=== PATIENT | female | born 1945 | race Native Hawaiian/Other Pacific Islander ===

== ENCOUNTER 2018-11-15 07:10 | Day surgery (SDC) | payer OTHER ==
[2018-11-15 07:33] VITALS: O2SAT 100
[2018-11-15 07:37] VITALS: BMI 18.1
[2018-11-15] MEDS ORDERED: Lactated Ringer's 500 ML IV ONE ×2 (08:01)
[2018-11-15] MEDS ORDERED: Propofol 10 mg/ml Inj (20 ML) ONE (09:39)
--- NOTE | 2018-11-15 09:42 | CP.SDSHP ---
Same Day Surgery H & P - History Proposed Procedure: EGD Pre-Op Diagnosis: SEE NOTES - Previous Medical/Surgical History Misc: Other Pain: 4.Moderate Pain - Allergies Allergies: Allergies No Known Allergies Allergy (Verified 11/15/18 07:33) - Physical Exam General Appearance: N Vital Signs: Vital Signs 11/15/18 07:25 Temperature 97.8 F Pulse Rate 77 Respiratory 19 Rate Blood Pressure 134/88 O2 Sat by Pulse 100 Oximetry Mental Status: Alert & Oriented x3 Neuro: WNL Heart: WNL Lungs: WNL GI: Other - {Optional Preform as Required} Breast: WNL Abdomen: Other Rectal: Other Integument: WNL : WNL Ortho: WNL ENT: WNL - Impression Pt. Evaluated Today:Candidate for Anesthesia & Procedure: Yes - Date & Time Time: 09:42 Short Stay Discharge - Short Stay Discharge Admitting Diagnosis/Reason for Visit: DYSPHAGIA Disposition: HOME/ ROUTINE
[2018-11-15] MEDS ORDERED: Belladonna-Phenobarbital PO STA (10:02)
[2018-11-15 10:21] VITALS: TEMP 96.9
[2018-11-15 10:39] VITALS: BP 114/62; PULSE 79; RESP 18
== END 2018-11-15 10:59 | disposition home or self-care (01) ==
LOC: C.ENDO 07:10
PROVIDERS: ATTEND Specialist
DX: R13.14 Dysphagia, pharyngoesophageal phase (principal); K44.9 Diaphragmatic hernia without obstruction or gangrene; K25.9 Gastric ulcer, unspecified as acute or chronic, without hemorrhage or perforation
CPT/HCPCS: 43239; 88305; J2001; J2704; J7120

== ENCOUNTER 2018-11-19 06:05 | Day surgery (SDC) | payer OTHER ==
[2018-11-19 07:06] VITALS: O2SAT 100
--- NOTE | 2018-11-19 08:53 | CP.SDSHP ---
Same Day Surgery H & P - History Proposed Procedure: COLONSCOPY Pre-Op Diagnosis: SEE NOTES - Previous Medical/Surgical History Misc: Other Pain: 2.Mild Pain - Allergies Allergies: Allergies No Known Allergies Allergy (Verified 11/19/18 06:56) - Physical Exam General Appearance: N Vital Signs: Vital Signs 11/19/18 06:57 Temperature 98.4 F Pulse Rate 58 L Respiratory 19 Rate Blood Pressure 98/57 L O2 Sat by Pulse 100 Oximetry Mental Status: Alert & Oriented x3 Neuro: WNL Heart: WNL Lungs: WNL GI: Other - {Optional Preform as Required} Breast: WNL Abdomen: Other Rectal: Other Integument: WNL : WNL Ortho: WNL ENT: WNL - Impression Pt. Evaluated Today:Candidate for Anesthesia & Procedure: Yes - Date & Time Time: 08:53 Short Stay Discharge - Short Stay Discharge Admitting Diagnosis/Reason for Visit: ENCOUNTER FOR SCREENING FOR MALIGNANT NEOPLASM OF Disposition: HOME/ ROUTINE
[2018-11-19] MEDS ORDERED: Belladonna-Phenobarbital PO ONE (09:00)
[2018-11-19] MEDS ORDERED: Propofol 10 mg/ml Inj (20 ML) ONE (09:08)
[2018-11-19 09:26] VITALS: TEMP 98.9
[2018-11-19 10:21] VITALS: BP 116/78; PULSE 66; RESP 14
== END 2018-11-19 10:17 | disposition home or self-care (01) ==
LOC: C.ENDO 06:05
PROVIDERS: ATTEND Specialist
DX: Z12.11 Encounter for screening for malignant neoplasm of colon (principal); K58.9 Irritable bowel syndrome, unspecified; K64.8 Other hemorrhoids; K64.4 Residual hemorrhoidal skin tags; K63.89 Other specified diseases of intestine
CPT/HCPCS: 45380; 88305; J2704